=== PATIENT | male | born 1990 | race Caucasian/White ===

== ENCOUNTER 2020-10-11 13:30 | Inpatient (IN) | payer OTHER ==
[~2020-10-11] VITALS: Ht 205.7 cm; Wt 68.0 kg
[2020-10-11 13:36] VITALS: Ht 205.7 cm; Wt 68.0 kg
[2020-10-11 15:10] LABS: BASOPHIL % 0.5 % (0.2-1.5); PLATELET COUNT 393 x10^3mcL (152-348); RED CELL DISTRIBUTION WIDTH 14.1 % (12.1-16.2)
[2020-10-11 15:25] LABS: CALCIUM 9.7 mg/dL (8.5-10.1); CARBON DIOXIDE 28.2 mmol/L (21-32); CHLORIDE SERUM 101 mmol/L (98-107); CREATININE SERUM 0.8 mg/dL (0.7-1.3); GFR1 > 60 mL/min; GLUCOSE SERUM 111 mg/dL (74-106); POTASSIUM SERUM 3.7 mmol/L (3.5-5.1); SODIUM SERUM 142 mmol/L (136-145)
[2020-10-11 15:30] LABS: ALBUMIN 3.7 g/dL (3.4-5.0); ALKALINE PHOSPHATASE 86 U/L (46-116); ALT/SGPT 29 U/L (16-63); AST/SGOT 25 U/L (15-37); BILIRUBIN TOTAL 0.59 mg/dL (0.20-1.00)
[2020-10-11 15:31] LABS: TOTAL PROTEIN, SERUM 8.4 g/dL (6.4-8.2)
[2020-10-11] MEDS ORDERED: NATURE'S BLEND F1 MG PO (18:14)
[2020-10-11] MEDS ORDERED: THIAMINE HCL100 MG PO (18:14)
[2020-10-11] MEDS ORDERED: LIB25 PO (18:14)
[2020-10-11] MEDS ORDERED: KEPPRA500 MG PO (18:15)
[2020-10-11] MEDS ORDERED: [UNRECOGNIZED DRUG - CODE] IM (18:15)
[2020-10-11] MEDS ORDERED: ZYPREXA5 M1 PO (18:15)
[2020-10-11] MEDS ORDERED: BENADRYL ALLERG25 M1 (18:15)
[2020-10-11] MEDS ORDERED: NEU300 PO (18:16)
[2020-10-11] MEDS ORDERED: PROZAC10 M2 PO (18:16)
[2020-10-12] MEDS ORDERED: FOL1 PO (11:12)
[2020-10-12] MEDS ORDERED: THI100 PO (11:12)
[2020-10-12 12:15] LABS: BASOPHIL % 0.7 % (0.2-1.5); PLATELET COUNT 336 x10^3mcL (152-348); RED CELL DISTRIBUTION WIDTH 14.3 % (12.1-16.2)
[2020-10-12 12:51] LABS: CALCIUM 9.2 mg/dL (8.5-10.1); CARBON DIOXIDE 26.2 mmol/L (21-32); CHLORIDE SERUM 104 mmol/L (98-107); CREATININE SERUM 0.7 mg/dL (0.7-1.3); GFR1 > 60 mL/min; GLUCOSE SERUM 106 mg/dL (74-106); MAGNESIUM 2.3 mg/dL (1.8-2.4); PHOSPHOROUS 4.5 mg/dL (2.5-4.9); POTASSIUM SERUM 3.6 mmol/L (3.5-5.1); SODIUM SERUM 142 mmol/L (136-145)
[2020-10-12 14:02] LABS: UA SPECIFIC GRAVITY 1.025 (1.005-1.035); microscopic required? YES; urine erythrocyte NEGATIVE (NEGATIVE)
[2020-10-12 14:13] VITALS: BP 119/68
[2020-10-12 14:59] LABS: AMPHETAMINE QUAL UR NONE DETECTED (See below)
== END 2020-10-12 14:56 | DRG 53 ==
LOC: ED 13:30 → DU 16:48
PROVIDERS: Emergency Medicine; ADMIT Family Medicine; ATTEND Family Medicine
DX: G40.89 Other seizures (principal); F10.239 Alcohol dependence with withdrawal, unspecified; Z20.828 Contact with and (suspected) exposure to other viral communicable diseases; Y90.9 Presence of alcohol in blood, level not specified; Z79.899 Other long term (current) drug therapy
CPT/HCPCS: G0378; J1953; J2405; J7030

== ENCOUNTER 2020-10-14 01:08 | Emergency (ER) | payer OTHER ==
[~2020-10-14] VITALS: Ht 180.3 cm; Wt 63.5 kg
[~2020-10-14 01:08] MED LIST: BENADRYL ALLERG25 M1; FOL1 PO; KEPPRA500 MG PO; LIB25 PO; NATURE'S BLEND F1 MG PO; NEU300 PO; PROZAC10 M2 PO; THI100 PO; THIAMINE HCL100 MG PO; ZYPREXA5 M1 PO; [UNRECOGNIZED DRUG - CODE] IM
[2020-10-14 02:49] VITALS: Ht 180.3 cm; Wt 63.5 kg
[2020-10-14 07:14] VITALS: BP 132/83
== END 2020-10-14 07:45 | disposition designated cancer center or children's hospital (05) ==
LOC: ED 01:08
DX: R00.2 Palpitations (principal)
CPT/HCPCS: G0480; J7030